=== PATIENT | female | born 1995 | race Caucasian/White ===

== ENCOUNTER 2017-08-18 08:34 | Emergency (ER) | payer BC ==
[2017-08-18] MEDS: diazePAM 5 MG TABLET PO (09:08)
[2017-08-18] MEDS: KETOROLAC 60 MG/2 ML INJ. IM (09:09)
[2017-08-18] MEDS: MORPHINE SULFATE 10 MG/ML VIAL. IM (09:09)
[2017-08-18] MEDS: DEXAMETHASONE SOD PHOS 20 MG/5 ML VIAL. IM (09:10)
== END 2017-08-18 09:35 | disposition home or self-care (01) ==
LOC: ER 08:34
DX: S30.0XXA Contusion of lower back and pelvis, initial encounter (principal); E11.9 Type 2 diabetes mellitus without complications; E66.9 Obesity, unspecified; Z68.43 Body mass index [BMI] 50.0-59.9, adult; Z88.0 Allergy status to penicillin; W16.012A Fall into swimming pool striking water surface causing other injury, initial encounter; Y93.89 Activity, other specified; Y92.89 Other specified places as the place of occurrence of the external cause; Y99.8 Other external cause status
CPT/HCPCS: 96372; 99284; J1100; J1885; J2270